=== PATIENT | female | born 1985 | race Caucasian/White ===

== ENCOUNTER 2020-02-07 17:26 | Inpatient (IN) ==
[2020-02-07] MEDS ORDERED: Lactated Ringers 1000 ml BAG 1,000 ML IV ONE (18:01)
[2020-02-07] MEDS ORDERED: Buffered Lidocaine 1% SYRIN 1 ml INTRADERM ONE (18:01)
[2020-02-07 18:15] LABS: ABS Lymphocytes 2.3 10^3/ul (1.0-4.8); ABS Neutrophils 11.5 10^3/ul (1.5-7.7); Eosinophil % 0.2 %; Hematocrit 33 % (35-47); Lymphocyte % 15.7 %; Mean Corpuscular HGB Conc 34 g/dL (31-36); Mean Corpuscular Hemoglobin 29 pg (27-31); Mean Corpuscular Volume 87 fL (80-97); Mean Platelet Volume 7.5 fL (7.4-10.4); Platelet Count 314 10^3/uL (150-450); Red Blood Count 3.75 10^6 /uL (3.70-4.87); Red Cell Distribution Width 14 % (10-15); White Blood Count 14.9 10^3/uL (3.5-10.8)
[2020-02-07] MEDS ORDERED: Lactated Ringers 1000 ml BAG 1,000 ML IV SCH (19:00)
[2020-02-07] MEDS ORDERED: Oxytocin in LR 0 UNITS/0 ML BAG IVPB ONE (19:23)
[2020-02-08 05:03] LABS: Urine Benzodiazepine Screen None Detected (None Detect); Urine Cannabinoids Screen None Detected (None Detect); Urine Opiates Screen None Detected (None Detect)
[2020-02-08] MEDS ORDERED: Dibucaine 1% OINT 28.35 GM TUBE PR PRN (08:22)
[2020-02-08] MEDS ORDERED: Glycerin ADULT 2.4 gm SUPP PR PRN (08:22)
[2020-02-08] MEDS ORDERED: Witch Hazel PAD JAR TOPICAL PRN (08:22)
[2020-02-08] MEDS ORDERED: Lactated Ringers 1000 ml BAG 1,000 ML IV SCH (09:00)
[2020-02-08 09:01] LABS: Hematocrit 29 % (35-47); Hemoglobin 9.6 g/dL (12.0-16.0); Mean Corpuscular HGB Conc 34 g/dL (31-36); Mean Corpuscular Hemoglobin 29 pg (27-31); Mean Corpuscular Volume 87 fL (80-97); Mean Platelet Volume 7.9 fL (7.4-10.4); Platelet Count 301 10^3/uL (150-450); Red Cell Distribution Width 14 % (10-15); White Blood Count 12.3 10^3/uL (3.5-10.8)
[2020-02-08] MEDS ORDERED: Measles, Mumps,Rubella VACC 0.5 ML/VIAL SUBCUT ONE (16:30)
[2020-02-09 07:59] VITALS: BP 103/60
== END 2020-02-09 13:39 | disposition home or self-care (01) | DRG 807 ==
LOC: MCHOBOUT 17:26 → MCHOB 17:53
PROVIDERS: ADMIT Midwife; ATTEND Midwife